=== PATIENT | female | born 1990 | race Caucasian/White ===

== ENCOUNTER 2016-07-19 14:21 | Emergency (ER) | payer OTHER ==
[~2016-07-19 14:21] MED LIST: GABA300C5 PO
--- NOTE | 2016-07-19 15:14 | PD ---
HPI Chief Complaint Headache, elevated blood pressure Date Seen: Jul 19, 2016 Time Seen: 15:00 Travel History International Travel<30 Days: No Contact w/Intl Traveler<30Days: No Known Affected Area: No History of Present Illness HPI 25-year-old primigravida 37 weeks 6 days who presents today with complaint of home blood pressure being elevated and headache. She denies any abdominal pain or visual changes. She has not tried anything for her headache. She denies any significant swelling. She reports good movement, no bleeding or leakage of fluid. She states that she had a appointment yesterday but is uncertain if she had elevated blood pressure or proteinuria urine at that time. Para: 0 : 1 History Past Medical History Narrative Medical Epilepsy, neurocardiogenic syncope Obstetric History Obstetric History care from the first trimester with Dr. Thomas. Positive GBS Early second trimester bleeding Failed 1 hour with no 3 hour performed due to patient's inability to comply. Past Surgical History Surgical History: No Previous Surgery Family History Narrative Family History Gestational diabetes Social History Alcohol Use: No Tobacco Use: No Substance Abuse: No Allergies-Medications (Allergen,Severity, Reaction): Coded Allergies: Benadryl (Verified Allergy, Mild, KEEPS PATIENT AWAL, 07/19/16) Keflex (Verified Allergy, Mild, VOMITING, 07/19/16) Home Meds Reported Medications Gabapentin 300 Mg [id number] Mg PO BID #60 CAP Ref 0 06/05/16 Review of Systems Except as stated in HPI: all other systems reviewed are Neg Physical Exam Narrative GENERAL: Well-nourished, well-developed patient. SKIN: Warm and dry. HEAD: Normocephalic and atraumatic. EYES: No scleral icterus. No injection or drainage. ENT: No nasal drainage noted. Mucous membranes pink. Airway patent. NECK: Supple, trachea midline. No JVD. CARDIOVASCULAR: Regular rate and rhythm without murmurs, gallops, or rubs. RESPIRATORY: Breath sounds equal bilaterally. No accessory muscle use. ABDOMEN/GI: Abdomen soft, non-tender, bowel sounds present, no rebound, no guarding Gravid to [-] weeks size Fundal Height: [-] GENITOURINARY: External Genitalia: intact and normal in appearance BUS glands: [-] Cervix: [-] Dilatation: [-] Effacement: [-] Station: [-] Presentation: [-] Membranes: [intact] Uterine Contractions: [None-] FHT's: Category: [-1] Baseline: [-] Reactive: [-] Variability: [-] Decels: [-] EXTREMITIES: No cyanosis, trace edema. BACK: Nontender without obvious deformity. No CVA tenderness. NEUROLOGICAL: Awake and alert. Motor and sensory grossly within normal limits. Five out of 5 muscle strength in all muscle groups. Normal speech. Data Data Vital Signs Reviewed: Yes Orders Protein Creat Ratio, Random Ur (07/19/16 14:51) MDM Medical Record Reviewed: Yes Narrative Course / MDM Assessment: 37+ week primigravida with mild elevation of blood pressure at home with normal blood pressures during extended monitoring here. Mild elevation of urinary protein creatinine ratio at 0.32 with normal CBC and CMP. No evidence of severe disease. Plan: Preeclamptic precautions were reviewed with the patient and she has a follow-up appointment scheduled on Friday for blood pressure reevaluation. She notes that she is able to return here sooner if need arises. Diagnosis Diagnosis: Primary Impression: 37 weeks gestation of Additional Impression: Hypertension affecting in third trimester Disposition: DISCHARGE HOME Condition: Good Simone Baeza MD Jul 19, 2016 15:14
[2016-07-19 15:57] LABS: HEMATOCRIT 29.1 % (35.0-46.0); MEAN CELL VOLUME 75.2 FL (80.0-100.0); MEAN CORPUSCULAR HEMOGLOBIN 24.2 PG (27.0-34.0); MEAN CORPUSCULAR HGB CONC 32.1 % (32.0-36.0); PLATELET COUNT 244 TH/MM3 (150-450); RED BLOOD COUNT 3.87 MIL/MM3 (4.00-5.30); RED CELL DISTRIBUTION WIDTH 14.6 % (11.6-17.2); WHITE BLOOD COUNT 7.5 TH/MM3 (4.0-11.0)
[2016-07-19 16:01] LABS: REVIEW FLAG FINAL
[2016-07-19 16:09] LABS: ALT (GPT) 12 U/L (10-53); ANION GAP 8 MEQ/L (5-15); AST (GOT) 10 U/L (15-37); BLOOD UREA NITROGEN 9 MG/DL (7-18); CHLORIDE 109 MEQ/L (98-107); GLOMERULAR FILTRATION RATE 143 ML/MIN (>89); POTASSIUM 4.5 MEQ/L (3.5-5.1); SODIUM (NA) 139 MEQ/L (136-145)
[2016-07-19 16:11] LABS: ALKALINE PHOSPHATASE 165 U/L (45-117); TOTAL BILIRUBIN ADULT 0.1 MG/DL (0.2-1.0)
== END 2016-07-19 17:53 | disposition home or self-care (01) ==
LOC: HOBED 14:21
DX: O16.3 Unspecified maternal hypertension, third trimester (principal); Z3A.37 37 weeks gestation of pregnancy
CPT/HCPCS: 36415; 59025; 80053; 82570; 84156; 85027

== ENCOUNTER 2016-07-29 03:12 | Inpatient (IN) | payer OTHER ==
[2016-07-29] VITALS (88 sets, daily range): BP systolic 107–161; BP diastolic 57–98; PULSE 67–129; RESP 16–20; TEMP 98.3–101.4; O2SAT 99
[~2016-07-29] VITALS: Ht 165.1 cm; Wt 86.2 kg
[2016-07-29] MEDS ORDERED: LACTATED RINGER'S 1000 ML INJ 1,000 ML IV PRN (04:12)
[2016-07-29] MEDS ORDERED: LIDOCAINE HCL 1% 50 ML VIAL INFIL PRN (04:15)
[2016-07-29] MEDS ORDERED: SODIUM CHLORID 0.9% 500 ML INJ 500 ML IV PRN (04:15)
[2016-07-29] MEDS ORDERED: OXYTOCIN 30 UNITS-500ML PREMIX 500 ML IV ONE (04:15)
[2016-07-29] MEDS ORDERED: PENICILLIN G POTASSIUM INJ 5,000,000 UNITS in SODIUM CHLORIDE 0.9% INJ 100 ML IV ONE (04:15)
[2016-07-29] MEDS ORDERED: MINERAL OIL 10 ML VIAL TOPICAL PRN (04:15)
[2016-07-29] MEDS ORDERED: CITRIC ACID-SODIUM CITRATE LIQ 30 ML UDC PO SCH (04:15)
[2016-07-29] MEDS ORDERED: LIDOCAINE HCL 1% 50 ML VIAL I-DERMAL PRN (04:15)
[2016-07-29] MEDS ORDERED: ONDANSETRON HCL 4 MG/2 ML VIAL IV PRN (04:15)
--- NOTE | 2016-07-29 04:27 | PD ---
HPI Chief Complaint leakage of fluid Date Seen: Jul 29, 2016 Travel History International Travel<30 Days: No Contact w/Intl Traveler<30Days: No Known Affected Area: No History of Present Illness HPI 26 yo @ 39w2d with ARASH 08-03-2016. care with Dr. Thomas. Patient presents with c/o leakage of clear fluid since 2am. Starting to feel occasional UC. +FM. No VB. C/o mild MONTERROSO. No epigastric or RUQ pain. No swelling. History Past Medical History Narrative Medical Neurocardiogenic Syncope Asthma Epilepsy Migraine Headaches Anxiety Obstetric History Obstetric History Past Surgical History Narrative Surgical T&A [place]eth Family History Family History: Negative Social History Alcohol Use: No Tobacco Use: No Substance Abuse: No Allergies-Medications (Allergen,Severity, Reaction): Coded Allergies: Benadryl (Verified Allergy, Mild, KEEPS PATIENT AWAL, 07/19/16) Keflex (Verified Allergy, Mild, VOMITING, 07/19/16) Home Meds Reported Medications Gabapentin 300 Mg [id number] Mg PO BID #60 CAP Ref 0 06/05/16 Review of Systems General / Constitutional: No: Fever, Chills Eyes: No: Blurred Vision, Visual changes HENT: No: Headaches, Lightheadedness Cardiovascular: No: Chest Pain or Discomfort, Palpitations Respiratory: No: Cough, Short of Breath Gastrointestinal: Abdominal Pain (contractions), No: Nausea, Vomiting, Diarrhea Genitourinary: No: Urgency, Frequency, Dysuria, Discharge, Vaginal Bleeding Musculoskeletal: No: Limited ROM, Weakness Skin: No Rash, No Itching Neurologic: No: Weakness, Dizziness Physical Exam Narrative GENERAL: Well-nourished, well-developed patient. SKIN: Warm and dry. HEAD: Normocephalic and atraumatic. EYES: No scleral icterus. No injection or drainage. ENT: No nasal drainage noted. Mucous membranes pink. Airway patent. NECK: Supple, trachea midline. No JVD. CARDIOVASCULAR: Regular rate and rhythm without murmurs, gallops, or rubs. RESPIRATORY: Breath sounds equal bilaterally. No accessory muscle use. ABDOMEN/GI: Abdomen soft, non-tender, bowel sounds present, no rebound, no guarding Gravid EFW 3200g GENITOURINARY: External Genitalia: intact and normal in appearance BUS glands: [-] AmniSure POS SVE FT/80/-2 FHT's: Category: I Baseline: 115 Reactive: + accelerations Variability: mod Decels: [-] EXTREMITIES: No cyanosis or edema. BACK: Nontender without obvious deformity. No CVA tenderness. NEUROLOGICAL: Awake and alert. Motor and sensory grossly within normal limits. Five out of 5 muscle strength in all muscle groups. Normal speech. Data Data Vital Signs Reviewed: Yes Orders Ob (2e) Additional Admit Info (07/29/16 03:54) ^ Labor Status (07/29/16 04:11) ^ Non Stress Test (07/29/16 04:11) Pamg-1 Test .ONCE (07/29/16 04:11) Admit To Inpatient (07/29/16 ) Code Status (07/29/16 04:12) Vital Signs (Adult) .Per protocol (07/29/16 04:12) Activity Oob Ad Evi (07/29/16 04:12) ^ Heart (07/29/16 04:12) ^ Amnioinfusion (07/29/16 04:12) Urinary Catheter Management .ONCE (07/29/16 04:12) Diet Liquid (07/29/16 Breakfast) Lactated Ringer's 1000 Ml Inj (Lr 1000 M (07/29/16 04:12) Lactated Ringer's 1000 Ml Inj (Lr 1000 M (07/29/16 04:12) Sodium Chlorid 0.9% 500 Ml Inj (Ns 500 M (07/29/16 04:15) Sodium Chlor 0.9% 1000 Ml Inj (Ns 1000 M (07/29/16 04:32) Lidocaine 1% Inj (50 Ml) (Xylocaine 1% I (07/29/16 04:15) Citric Acid-Sodium Citrate Liq (Bicitra (07/29/16 04:15) Ondansetron Inj (Zofran Inj) (07/29/16 04:15) Fentanyl Inj (Fentanyl Inj) (07/29/16 04:15) Fentanyl Inj (Fentanyl Inj) (07/29/16 04:15) Penicillin G Potassium Inj (Pfizerpen-G (07/29/16 04:15) Penicillin G Potassium Inj (Pfizerpen-G (07/29/16 08:15) Complete Blood Count With Diff (2/20/17 04:12) Hold Clot (07/29/16 04:12) Abo/Rh Blood Type (07/29/16 04:12) Resp Oxygen Non Rebreathe Mask (07/29/16 ) ^ Epidural / Intrathecal Infus (07/29/16 04:12) Oxytocin 30 Units-500ml Premix (Pitocin (07/29/16 04:15) Lidocaine 1% Inj (50 Ml) (Xylocaine 1% I (07/29/16 04:15) Light Mineral Oil (Muri-Lube Oil) (07/29/16 04:15) Inpatient Certification (07/29/16 ) MDM Narrative Course / MDM 39 weeks PROM with clear fluid GBS POS CAT I FHT Plan Admit [facility] for GBS prophylaxis Reassuring FHT Pitocin augmentation as indicated Physician Communication Dr. Evin Barnard,Zulma Boyd MD Jul 29, 2016 04:27
[2016-07-29] MEDS ORDERED: SODIUM CHLOR 0.9% 1000 ML INJ 1,000 ML IV PRN (04:32)
--- NOTE | 2016-07-29 04:32 | HHI.HP ---
History & Physical H&P HPI Chief Complaint leakage of fluid Date Seen: Jul 29, 2016 Travel History International Travel<30 Days: No Contact w/Intl Traveler<30Days: No Known Affected Area: No History of Present Illness HPI 26 yo @ 39w2d with ARASH 08-03-2016. care with Dr. Thomas. Patient presents with c/o leakage of clear fluid since 2am. Starting to feel occasional UC. +FM. No VB. C/o mild MONTERROSO. No epigastric or RUQ pain. No swelling. History (Limited) History Past Medical History Narrative Medical Neurocardiogenic Syncope Asthma Epilepsy Migraine Headaches Anxiety Obstetric History Obstetric History Past Surgical History Narrative Surgical T&A [place] Teeth Family History Family History: Negative Social History Alcohol Use: No Tobacco Use: No Substance Abuse: No Allergies-Medications Allergies-Medications (Allergen,Severity, Reaction): Coded Allergies: Benadryl (Verified Allergy, Mild, KEEPS PATIENT AWAL, 07/19/16) Keflex (Verified Allergy, Mild, VOMITING, 07/19/16) Home Meds Reported Medications Gabapentin 300 Mg [id number] Mg PO BID #60 CAP Ref 0 06/05/16 ROS Review of Systems General / Constitutional: No: Fever, Chills Eyes: No: Blurred Vision, Visual changes HENT: No: Headaches, Lightheadedness Cardiovascular: No: Chest Pain or Discomfort, Palpitations Respiratory: No: Cough, Short of Breath Gastrointestinal: Abdominal Pain (contractions), No: Nausea, Vomiting, Diarrhea Genitourinary: No: Urgency, Frequency, Dysuria, Discharge, Vaginal Bleeding Musculoskeletal: No: Limited ROM, Weakness Skin: No Rash, No Itching Neurologic: No: Weakness, Dizziness Physical Exam Physical Exam Narrative GENERAL: Well-nourished, well-developed patient. SKIN: Warm and dry. HEAD: Normocephalic and atraumatic. EYES: No scleral icterus. No injection or drainage. ENT: No nasal drainage noted. Mucous membranes pink. Airway patent. NECK: Supple, trachea midline. No JVD. CARDIOVASCULAR: Regular rate and rhythm without murmurs, gallops, or rubs. RESPIRATORY: Breath sounds equal bilaterally. No accessory muscle use. ABDOMEN/GI: Abdomen soft, non-tender, bowel sounds present, no rebound, no guarding Gravid EFW 3200g GENITOURINARY: External Genitalia: intact and normal in appearance BUS glands: [-] AmniSure POS SVE FT/80/-2 FHT's: Category: I Baseline: 115 Reactive: + accelerations Variability: mod Decels: [-] EXTREMITIES: No cyanosis or edema. BACK: Nontender without obvious deformity. No CVA tenderness. NEUROLOGICAL: Awake and alert. Motor and sensory grossly within normal limits. Five out of 5 muscle strength in all muscle groups. Normal speech. Data Data Data Vital Signs Reviewed: Yes Orders Ob (2e) Additional Admit Info (07/29/16 03:54) ^ Labor Status (07/29/16 04:11) ^ Non Stress Test (07/29/16 04:11) Pamg-1 Test .ONCE (07/29/16 04:11) Admit To Inpatient (07/29/16 ) Code Status (07/29/16 04:12) Vital Signs (Adult) .Per protocol (07/29/16 04:12) Activity Oob Ad Evi (07/29/16 04:12) ^ Heart (07/29/16 04:12) ^ Amnioinfusion (07/29/16 04:12) Urinary Catheter Management .ONCE (07/29/16 04:12) Diet Liquid (07/29/16 Breakfast) Lactated Ringer's 1000 Ml Inj (Lr 1000 M (07/29/16 04:12) Lactated Ringer's 1000 Ml Inj (Lr 1000 M (07/29/16 04:12) Sodium Chlorid 0.9% 500 Ml Inj (Ns 500 M (07/29/16 04:15) Sodium Chlor 0.9% 1000 Ml Inj (Ns 1000 M (07/29/16 04:32) Lidocaine 1% Inj (50 Ml) (Xylocaine 1% I (07/29/16 04:15) Citric Acid-Sodium Citrate Liq (Bicitra (07/29/16 04:15) Ondansetron Inj (Zofran Inj) (07/29/16 04:15) Fentanyl Inj (Fentanyl Inj) (07/29/16 04:15) Fentanyl Inj (Fentanyl Inj) (07/29/16 04:15) Penicillin G Potassium Inj (Pfizerpen-G (07/29/16 04:15) Penicillin G Potassium Inj (Pfizerpen-G (07/29/16 08:15) Complete Blood Count With Diff (07/29/16 04:12) Hold Clot (07/29/16 04:12) Abo/Rh Blood Type (07/29/16 04:12) Resp Oxygen Non Rebreathe Mask (07/29/16 ) ^ Epidural / Intrathecal Infus (07/29/16 04:12) Oxytocin 30 Units-500ml Premix (Pitocin (07/29/16 04:15) Lidocaine 1% Inj (50 Ml) (Xylocaine 1% I (07/29/16 04:15) Light Mineral Oil (Muri-Lube Oil) (07/29/16 04:15) Inpatient Certification (07/29/16 ) MDM MDM Narrative Course / MDM 39 weeks PROM with clear fluid GBS POS CAT I FHT Plan Admit [facility] for GBS prophylaxis Reassuring FHT Pitocin augmentation as indicated Physician Communication Zulma Dunaway MD Jul 29, 2016 04:27 Zulma Barnard MD Jul 29, 2016 04:32
[2016-07-29] MEDS ORDERED: CLON0.1T PO (04:42)
[2016-07-29 04:48] LABS: AUTOMATED NEUTROPHIL # 7.7 TH/MM3 (1.8-7.7); BASOPHIL # 0.1 TH/MM3 (0-0.2); BASOPHIL % 0.7 % (0.0-2.0); EOSINOPHIL % 0.2 % (0.0-4.0); HEMATOCRIT 29.2 % (35.0-46.0); LYMPH % 18.5 % (9.0-44.0); LYMPHOCYTE # 1.9 TH/MM3 (1.0-4.8); MEAN CELL VOLUME 73.3 FL (80.0-100.0); MEAN CORPUSCULAR HGB CONC 32.8 % (32.0-36.0); NEUT % 73.6 % (16.0-70.0); PLATELET COUNT 282 TH/MM3 (150-450); RED BLOOD COUNT 3.99 MIL/MM3 (4.00-5.30); RED CELL DISTRIBUTION WIDTH 14.9 % (11.6-17.2); WHITE BLOOD COUNT 10.5 TH/MM3 (4.0-11.0)
[2016-07-29 04:51] LABS: HEMO FLAGS AUTO DIFF
[2016-07-29] MEDS: LACTATED RINGER'S 1000 ML INJ 1,000 ML IV SCH ×2 (04:58→08:54)
[2016-07-29 05:22] LABS: OVALOCYTES 1+ (NORMAL); PLATELET ESTIMATE SMEAR NORMAL (NORMAL); PLATELET MORPHOLOGY NORMAL (NORMAL); SCAN/DIFF AUTO DIFF CONFIRMED
[2016-07-29] MEDS ORDERED: OXYTOCIN 30 UNITS-500ML PREMIX 500 ML IV SCH (08:30)
[2016-07-29] MEDS: PENICILLIN G POTASSIUM INJ 2,500,000 UNITS in SODIUM CHLORIDE 0.9% INJ 100 ML IV SCH ×2 (08:52→13:04)
[2016-07-29] MEDS: cloNIDine HCL 0.1 MG TAB PO SCH (09:00)
[2016-07-29] MEDS ORDERED: PILL SPLITTER OTHER PRN (09:00)
[2016-07-29] MEDS: GABAPENTIN 300 MG CAP PO SCH (09:00)
[2016-07-29] MEDS ORDERED: cloNIDine HCL 0.1 MG TAB PO SCH (09:00)
[2016-07-29] MEDS ORDERED: fentaNYL 2MCG-BUPIV 0.125% INJ 100 ML ONE ×2 (10:28→16:20)
[2016-07-29] MEDS ORDERED: ePHEDrine/NS 25 MG/5 ML SYR ONE (10:28)
[2016-07-29] MEDS ORDERED: DIPHTH/TETANUS/ACEL PERTUSSIS (BOOSTER) 0.5 ML VIAL/PFS IM ONE (16:00)
[2016-07-29] MEDS ORDERED: MEASLES, MUMPS, RUBELLA VACCINE 0.5 ML VIAL SQ ONE (16:00)
[2016-07-29] MEDS ORDERED: NO SYSTEM NARCOTICS XX PRN (17:30)
[2016-07-29] MEDS ORDERED: fentaNYL 2MCG-BUPIV 0.125% 100 ML EPIDURAL SCH (17:30)
[2016-07-29] MEDS ORDERED: CLINDAMYCIN 600 MG/NS 100 ML IV ONE ×2 (17:30)
[2016-07-29] MEDS ORDERED: ePHEDrine/NS 25 MG/5 ML SYR IV PRN (17:30)
[2016-07-29] MEDS ORDERED: DO NOT ADMINISTER ANTICOAGULANTS XX PRN (17:30)
[2016-07-29] MEDS ORDERED: METRONIDAZOLE 500 MG/100 ML ISONTONIC SOLN IV ONE (18:00)
--- NOTE | 2016-07-29 18:39 | PD.OB.DELI ---
Anesthesia: Epidural Episiotomy: None Vaginal Delivery: Normal Presentation: Occiput anterior Nuchal Cord: x1 Delayed cord clamping (45 sec): Yes : Male, Single One Minute : 8 Five Minute : 9 Weight: 6 8 Care: Suctioned, Spontaneous crying Placenta: Spontaneous delivery, Intact, 3 vessel cord Laceration: No lacerations Rosy Thomas MD Jul 29, 2016 18:39
[2016-07-29] MEDS ORDERED: DOCUSATE SODIUM 50 MG/SENNA 8.6 MG TAB PO PRN (18:45)
[2016-07-29] MEDS ORDERED: ALUMINUM/MAGNESIUM/SIMETH 30 ML CUP PO PRN (18:45)
[2016-07-29] MEDS ORDERED: ONDANSETRON ODT 4 MG TAB PO PRN (18:45)
[2016-07-29] MEDS ORDERED: SODIUM CHLORIDE 0.9% FLUSH 5 ML FLUSH IV PRN (18:45)
[2016-07-29] MEDS ORDERED: BENZOCAINE 20% TOPICAL SPRAY 60 ML CAN TOPICAL PRN (18:45)
[2016-07-29] MEDS ORDERED: WITCH HAZEL 50%/GLYCERIN 12.5% 40 PAD JAR TOPICAL PRN (18:45)
[2016-07-29] MEDS ORDERED: ZOLPIDEM TARTRATE 5 MG TAB PO PRN (18:45)
[2016-07-29] MEDS ORDERED: SODIUM CHLORIDE 0.9% FLUSH 5 ML FLUSH IV SCH (21:00)
[2016-07-29] MEDS: IBUPROFEN 600 MG TAB PO PRN (22:30)
[2016-07-29] MEDS: ACETAMINOPHEN 325 MG TAB PO PRN (22:30)
[2016-07-30] MEDS: ACETAMINOPHEN 325 MG TAB PO PRN ×3 (03:44→15:07)
--- NOTE | 2016-07-30 08:11 | HHI.OB ---
Subjective Post Day: 1 Remarks Doing well, ibuprofen/tylenol for pain. Min to mod lochia. Objective Vitals/I&O Vital Signs Date Time Temp Pulse Resp B/P Pulse Ox O2 Delivery O2 Flow Rate FiO2 07/30/16 04:40 18 07/29/16 23:30 18 07/29/16 22:20 99.1 95 18 129/80 99 07/29/16 20:13 18 07/29/16 20:11 101.4 07/29/16 20:10 95 138/82 07/29/16 20:10 18 07/29/16 19:40 18 07/29/16 19:10 18 07/29/16 18:46 106 139/80 07/29/16 18:40 101.3 07/29/16 18:40 18 07/29/16 17:15 114 07/29/16 17:00 98.3 18 07/29/16 16:55 107 07/29/16 16:50 92 07/29/16 16:45 96 07/29/16 16:40 97 07/29/16 16:35 85 07/29/16 16:34 101.0 07/29/16 16:30 95 158/93 07/29/16 16:25 100 07/29/16 16:20 89 07/29/16 16:15 95 07/29/16 15:55 93 07/29/16 15:50 90 07/29/16 15:49 18 07/29/16 15:49 99.3 07/29/16 15:45 90 07/29/16 15:10 108 07/29/16 15:05 86 07/29/16 15:00 89 148/69 07/29/16 14:55 89 07/29/16 14:50 88 07/29/16 14:45 88 07/29/16 14:30 18 07/29/16 14:25 91 07/29/16 14:20 87 07/29/16 14:15 84 07/29/16 14:15 18 07/29/16 14:10 89 07/29/16 14:05 94 07/29/16 14:01 89 130/76 07/29/16 14:00 89 07/29/16 13:45 18 07/29/16 13:45 98 07/29/16 13:40 88 2/20/17 13:35 112 07/29/16 13:31 89 141/85 07/29/16 13:30 129 07/29/16 13:15 19 07/29/16 13:10 81 07/29/16 13:05 96 07/29/16 13:00 95 07/29/16 13:00 102 148/86 07/29/16 12:45 17 07/29/16 12:40 105 07/29/16 12:31 113 127/97 07/29/16 11:45 17 07/29/16 11:35 72 135/75 07/29/16 11:30 77 18 134/85 07/29/16 11:26 77 107/57 07/29/16 11:25 70 07/29/16 11:21 70 107/71 07/29/16 11:20 67 07/29/16 11:15 86 135/88 07/29/16 11:15 18 07/29/16 11:11 112/87 07/29/16 11:10 73 07/29/16 11:06 76 137/82 07/29/16 11:05 67 07/29/16 11:01 71 153/79 07/29/16 11:00 71 07/29/16 10:56 68 142/79 07/29/16 10:55 76 07/29/16 10:50 75 151/76 07/29/16 10:45 81 150/90 07/29/16 10:41 76 139/94 07/29/16 10:40 77 07/29/16 10:36 74 161/84 07/29/16 10:35 79 07/29/16 10:35 17 07/29/16 10:31 80 153/89 07/29/16 10:30 78 07/29/16 10:26 87 144/98 07/29/16 10:25 101 07/29/16 10:24 102 157/95 07/29/16 10:00 20 07/29/16 09:45 86 136/82 07/29/16 09:30 17 07/29/16 09:30 98.3 87 124/75 07/29/16 09:15 20 07/29/16 09:15 81 130/73 07/29/16 09:11 81 141/84 Objective Remarks GENERAL: Well-nourished, well-developed patient. CARDIOVASCULAR: Regular rate and rhythm without murmurs, gallops, or rubs. RESPIRATORY: Breath sounds equal bilaterally. No accessory muscle use. ABDOMEN/GI: Abdomen soft, non-tender. Fundus: Firm, non-tender at umbilicus. GENITOURINARY: Light to moderate bleeding. EXTREMITIES: No cyanosis, trace edema, non-tender, without signs of DVT. Medications and IVs Current Medications Medications (Trade) Dose Ordered Sig/Honey Route Start Time Stop Time Status Last Admin Lactated Ringer's 1,000 ml @ 125 mls/hr Q8H IV 07/29/16 04:12 07/29/16 08:54 Lactated Ringer's 1,000 ml @ 3,000 mls/hr Q20M PRN IV 07/29/16 04:12 07/29/16 10:42 (NS 1000 ml Inj) 1,000 ml @ 100 mls/hr Q10H PRN IV 07/29/16 04:32 07/29/16 13:05 (Zofran Inj) 4 mg Q6H PRN IV 07/29/16 04:15 07/29/16 05:40 (fentaNYL INJ) 50 mcg Q1H PRN IV PUSH 07/29/16 04:15 Fentanyl Citrate 100 mcg 100 mcg Q1H PRN IV PUSH 07/29/16 04:15 (Pfizerpen-G Inj/ NS Inj) 100 ml @ 200 mls/hr Q4H IV 07/29/16 08:15 07/29/16 13:04 Mineral Oil 10 ml 10 ml UNSCH PRN TOPICAL 07/29/16 04:15 07/29/16 18:04 (Pitocin 30 Units-NS 500 ml Premix) 500 ml @ 0 mls/hr TITRATE IV 07/29/16 08:30 07/29/16 09:01 (Neurontin) 300 mg BID PO 07/29/16 09:00 (Catapres) 0.05 mg DAILY PO 07/29/16 09:00 (Pill Splitter) 1 ea UNSCH PRN OTHER 07/29/16 09:00 Miscellaneous Information No systemic narcotics to be given except... UNSCH PRN XX 07/29/16 17:30 07/30/16 17:29 Miscellaneous Information DO NOT ADMINISTER ANY ANTICOAGUL... UNSCH PRN XX 07/29/16 17:30 07/30/16 17:29 (fentaNYL 2MCG-BUPIV 0.125% INJ) 100 ml @ 0 mls/hr TITRATE EPIDURAL 07/29/16 17:30 07/29/16 18:04 (ePHEDrine/NS 25 MG/5 ML SYR) 10 mg UNSCH PRN IV 07/29/16 17:30 07/30/16 17:29 (NS Flush) 2 ml BID IV 07/29/16 21:00 (NS Flush) 2 ml UNSCH PRN IV 07/29/16 18:45 (Tylenol) 650 mg Q4H PRN PO 07/29/16 18:45 07/30/16 03:44 (Motrin) 600 mg Q6H PRN PO 07/29/16 18:45 07/29/16 22:30 (Americaine 20% Top Spr) 1 spray Q4H PRN TOPICAL 07/29/16 18:45 07/29/16 22:30 (Tucks Pads) 1 applic QID PRN TOPICAL 07/29/16 18:45 07/29/16 22:30 (Maryanne-Colace) 2 tab Q12H PRN PO 07/29/16 18:45 (Ambien) 5 mg HS PRN PO 07/29/16 18:45 (Mag-Al Plus Susp Liq) 15 ml Q8H PRN PO 07/29/16 18:45 (Zofran Odt) 4 mg Q6H PRN PO 07/29/16 18:45 Assessment/Plan Problem List: (1) (spontaneous vaginal delivery) Assessment and Plan s/p after PROM at 39 wk 1) ppd 1- cont routine care 2) h/o seizure d/o neurocardiogenic syncope Leela Montaño MD Jul 30, 2016 08:11
[2016-07-30] MEDS: cloNIDine HCL 0.1 MG TAB PO SCH (10:22)
[2016-07-30] MEDS: IBUPROFEN 600 MG TAB PO PRN ×2 (10:22→16:56)
[2016-07-30] MEDS: GABAPENTIN 300 MG CAP PO SCH ×2 (10:22→21:58)
[2016-07-30] MEDS ORDERED: IBUP-232 PO (13:24)
[2016-07-30] MEDS ORDERED: FERR325T PO (13:25)
[2016-07-30 20:00] VITALS: BP 125/75; PULSE 87; RESP 18; TEMP 98.3
[2016-07-31] MEDS: IBUPROFEN 600 MG TAB PO PRN ×2 (01:19→09:00)
[2016-07-31 08:30] VITALS: BP 118/73; PULSE 79; RESP 18; TEMP 98.6
[2016-07-31] MEDS: GABAPENTIN 300 MG CAP PO SCH (09:00)
[2016-07-31] MEDS: cloNIDine HCL 0.1 MG TAB PO SCH (09:01)
--- NOTE | 2016-07-31 11:14 | HHI.OB ---
Subjective Post Day: 2 Remarks PPD#2, Stable, doing well Objective Vitals/I&O Vital Signs Date Time Temp Pulse Resp B/P Pulse Ox O2 Delivery O2 Flow Rate FiO2 07/31/16 08:30 98.6 79 18 118/73 07/30/16 20:00 98.3 87 18 125/75 Objective Remarks GENERAL: Well-nourished, well-developed patient. CARDIOVASCULAR: Regular rate and rhythm without murmurs, gallops, or rubs. RESPIRATORY: Breath sounds equal bilaterally. No accessory muscle use. ABDOMEN/GI: Abdomen soft, non-tender. Fundus: Firm, non-tender at umbilicus. GENITOURINARY: Light to moderate bleeding. EXTREMITIES: No cyanosis, trace edema, non-tender, without signs of DVT. Medications and IVs Current Medications Medications (Trade) Dose Ordered Sig/Honey Route Start Time Stop Time Status Last Admin Lactated Ringer's 1,000 ml @ 125 mls/hr Q8H IV 07/29/16 04:12 07/29/16 08:54 Lactated Ringer's 1,000 ml @ 3,000 mls/hr Q20M PRN IV 07/29/16 04:12 07/29/16 10:42 (NS 1000 ml Inj) 1,000 ml @ 100 mls/hr Q10H PRN IV 07/29/16 04:32 07/29/16 13:05 (Zofran Inj) 4 mg Q6H PRN IV 07/29/16 04:15 07/29/16 05:40 (fentaNYL INJ) 50 mcg Q1H PRN IV PUSH 07/29/16 04:15 Fentanyl Citrate 100 mcg 100 mcg Q1H PRN IV PUSH 07/29/16 04:15 (Pfizerpen-G Inj/ NS Inj) 100 ml @ 200 mls/hr Q4H IV 07/29/16 08:15 07/29/16 13:04 Mineral Oil 10 ml 10 ml UNSCH PRN TOPICAL 07/29/16 04:15 07/29/16 18:04 (Pitocin 30 Units-NS 500 ml Premix) 500 ml @ 0 mls/hr TITRATE IV 07/29/16 08:30 07/29/16 09:01 (Neurontin) 300 mg BID PO 07/29/16 09:00 07/30/16 21:58 (Catapres) 0.05 mg DAILY PO 07/29/16 09:00 07/31/16 09:01 Miscellaneous 1 ea 1 ea UNSCH PRN OTHER 07/29/16 09:00 (fentaNYL 2MCG-BUPIV 0.125% INJ) 100 ml @ 0 mls/hr TITRATE EPIDURAL 07/29/16 17:30 07/29/16 18:04 (NS Flush) 2 ml BID IV 07/29/16 21:00 (NS Flush) 2 ml UNSCH PRN IV 07/29/16 18:45 (Tylenol) 650 mg Q4H PRN PO 07/29/16 18:45 07/30/16 15:07 (Motrin) 600 mg Q6H PRN PO 07/29/16 18:45 07/31/16 09:00 (Americaine 20% Top Spr) 1 spray Q4H PRN TOPICAL 07/29/16 18:45 07/29/16 22:30 (Tucks Pads) 1 applic QID PRN TOPICAL 07/29/16 18:45 07/29/16 22:30 (Maryanne-Colace) 2 tab Q12H PRN PO 07/29/16 18:45 07/30/16 16:56 (Ambien) 5 mg HS PRN PO 07/29/16 18:45 (Mag-Al Plus Susp Liq) 15 ml Q8H PRN PO 07/29/16 18:45 (Zofran Odt) 4 mg Q6H PRN PO 07/29/16 18:45 Assessment/Plan Problem List: (1) (spontaneous vaginal delivery) Assessment and Plan PPD#2, Stable for discharge Discharge Planning Routine Attending Attestation Seen by Simone Shaw MD Jul 31, 2016 11:14
== END 2016-07-31 18:49 | disposition home or self-care (01) | DRG 775 ==
LOC: HOBED 03:12 → H2EA 03:58 → H1EA 21:30
PROVIDERS: ADMIT Obstetrics & Gynecology; ATTEND Obstetrics & Gynecology
PROC: 10E0XZZ Delivery of Products of Conception, External Approach (ICD-10-PCS; principal; 2016-07-29)
PROC: 3E0R3CZ (ICD-10-PCS; 2016-07-29)
PROC: 00HU33Z Insertion of Infusion Device into Spinal Canal, Percutaneous Approach (ICD-10-PCS; 2016-07-29)
DX: O99.52 Diseases of the respiratory system complicating childbirth (principal); R55 Syncope and collapse; Z37.0 Single live birth; O99.354 Diseases of the nervous system complicating childbirth; G40.909 Epilepsy, unspecified, not intractable, without status epilepticus; J45.909 Unspecified asthma, uncomplicated; O69.81X0 Labor and delivery complicated by cord around neck, without compression, not applicable or unspecified; Z3A.39 39 weeks gestation of pregnancy
CPT/HCPCS: 84112; 85025; 86900; 86901; 90715; 99285; J2405; J2540; J2590; J7030; J7120